=== PATIENT | female | born 1965 ===

== ENCOUNTER → 2022-11-22 15:05 | Outpatient (BNVA) | payer OTHER, SELFPAY | PROVIDERS: PCP Physician Assistant; Visit Provider Hospitalist | DX: D3A.00 Benign carcinoid tumor of unspecified site (principal); J40 Bronchitis, not specified as acute or chronic; R91.8 Other nonspecific abnormal finding of lung field; R40.0 Somnolence | CPT/HCPCS: 99202 ==

== ENCOUNTER 2022-12-06 09:55 | Outpatient (REF) | payer OTHER, SELFPAY ==
--- NOTE | ~2022-12-06 | CT_ITS ---
EXAMINATION: CT CHEST WITHOUT CONTRAST CLINICAL INFORMATION: Pulmonary nodules. COMPARISON: CT chest 01/06/2018. TECHNIQUE: Multidetector volumetric CT imaging of the chest was done. Axial MIP volume rendering provided. Sagittal and coronal reformatted images were obtained. This CT examination was performed using dose optimization techniques as appropriate, variously including the following: *Automated exposure control *Adjustment of mA and/or kV according to patient size (this includes techniques or standardized protocols for targeted exams where dose is matched to indication/reason for exam; i.e. extremities or head) *Use of iterative reconstruction technique DLP: 122 mGy-cm FINDINGS: LUNGS: Right upper lobectomy. Approximate 2.6 x 2.3 cm mass at the hilum with narrowing of the right middle lobe bronchus. Evaluation is limited without intravenous contrast. Stable 4 mm groundglass nodule left upper lobe series 7 image 122. Stable 4 mm nodule right lower lobe series 7 image 312. Stable 3 mm nodule right lower lobe series 7 image 251 stable 2 mm nodule left upper lobe series 7 image 250. Stable 2 mm nodule left upper lobe series 7 image 233. New 4 mm nodule right lower lobe series 7 image 361. MEDIASTINUM: No bulky adenopathy. Evaluation limited without intravenous contrast. CORONARY ARTERY CALCIFICATION: None visualized on this study. PLEURA: There is no pleural effusion. No pleural mass or thickening. AXILLA: No lymphadenopathy. 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 OSSEOUS STRUCTURES: Unremarkable. CT/CT chest wo IV con IMPRESSION: Right upper lobectomy. Approximately 2.6 x 2.3 cm mass at the hilum with narrowing of the right middle lobe bronchus suspicious for recurrence. Evaluation limited without intravenous contrast. Recommend chest CT with intravenous contrast. Bronchoscopy can also be considered. Multiple small pulmonary nodules as above. The majority are stable. There is a new 4 mm nodule right lower lobe which is nonspecific. Fleischner guidelines were followed.
== END 2022-12-06 09:56 | disposition home or self-care (01) ==
LOC: HO.CT 09:55
PROVIDERS: PCP Physician Assistant; Visit Provider Hospitalist
DX: R91.8 Other nonspecific abnormal finding of lung field (principal)
CPT/HCPCS: 71250

== ENCOUNTER 2022-12-13 10:51 | Outpatient (REF) | payer OTHER, SELFPAY ==
--- NOTE | 2022-12-13 15:13 | PFT_ITS ---
FLOWS: 1. FEV1 64% of predicted at 1.72 L. 2. FVC 66% of predicted at 3.21 L. 3. FEV1 to FVC ratio 0.78. 4. No bronchodilator response. LUNG VOLUMES: 1. Total lung capacity 71% of predicted at 3.63 L. 2. Residual volume 84% of predicted at 1.59 L. 3. Slow vital capacity 64% of predicted at 2.04 L. 4. Expiratory reserve volume 27% of predicted at 0.6 L. 5. Diffusion capacity is mildly decreased, diffusion capacity corrects to normal after adjustment for alveolar ventilation. IMPRESSION: Moderate restrictive ventilatory defect with no bronchodilator response. Avtar Monge MD AP/MODL / [id number]
== END 2022-12-13 10:52 | disposition home or self-care (01) ==
LOC: HO.RESP 10:51
PROVIDERS: PCP Physician Assistant; Visit Provider Hospitalist
DX: R91.8 Other nonspecific abnormal finding of lung field (principal); J45.40 Moderate persistent asthma, uncomplicated; D3A.00 Benign carcinoid tumor of unspecified site
CPT/HCPCS: 94060; 94727; 94729; 99212

== ENCOUNTER 2023-01-03 10:50 | Outpatient (REF) | payer OTHER, SELFPAY ==
[2023-01-05 10:19] LABS: HPV mRNA E6/E7 rflx Not Detected (Not Detected)
== END 2023-01-03 10:51 | disposition home or self-care (01) ==
LOC: HO.LNP 10:50
PROVIDERS: PCP Physician Assistant; Visit Provider Obstetrics & Gynecology
DX: Z01.419 Encounter for gynecological examination (general) (routine) without abnormal findings (principal); Z11.51 Encounter for screening for human papillomavirus (HPV)
CPT/HCPCS: 87624; 88142

== ENCOUNTER 2023-01-17 11:21 | Outpatient (REF) | payer OTHER, SELFPAY ==
--- NOTE | ~2023-01-17 | US_ITS ---
EXAMINATION: US PELVIS CLINICAL INFORMATION: Disorders of the ovaries/fallopian tube. COMPARISON: Pelvic ultrasound 09/18/2018. TECHNIQUE: Ultrasound of the pelvis is performed using both transabdominal and transvaginal transducers along with Doppler. Transvaginal imaging is performed due to inadequate visualization transabdominally. FINDINGS: The uterus is anteverted and measures 5.7 x 2.9 x 3.5 cm. No uterine mass. The endometrium measures 0.4 cm in thickness with a small amount of fluid. Redemonstration of a homogeneously hypoechoic solid appearing left adnexal mass measuring 2.5 x 2 x 2.7 cm, increased in size from 1.9 x 1.4 x 2.3 cm on pelvic ultrasound from 09/18/2018. The adjacent left ovary is partially seen measuring approximately 2.3 x 1.4 x 1.9 cm, 3.2 mL. Normal appearance of the right ovary measuring 2.6 x 1.3 x 1.9 cm, 3.4 mL. US/US pelvic and transvaginal IMPRESSION: 1. Redemonstration of a left adnexal mass which is increased in size from 09/18/2018. Recommend further evaluation with an MR of the pelvis with and without intravenous contrast. 2. Normal appearance of the right ovary. 3. Small amount of fluid in the endometrial canal, nonspecific in a postmenopausal patient, recommend gynecologic consultation.
== END 2023-01-17 11:22 | disposition home or self-care (01) ==
LOC: HO.US 11:21
PROVIDERS: Visit Provider Obstetrics & Gynecology
DX: N83.8 Other noninflammatory disorders of ovary, fallopian tube and broad ligament (principal)
CPT/HCPCS: 76830; 76856

== ENCOUNTER → 2023-01-30 14:49 | Outpatient (BNVA) | payer MEDICAID, SELFPAY | PROVIDERS: PCP Physician Assistant; Visit Provider Surgery | DX: Z91.89 Other specified personal risk factors, not elsewhere classified (principal); Z80.3 Family history of malignant neoplasm of breast | CPT/HCPCS: 99212 ==

== ENCOUNTER 2023-02-14 08:22 | Outpatient (REF) | payer MEDICAID, SELFPAY ==
--- NOTE | ~2023-02-14 | MM_ITS ---
EXAMINATION: MM SCREENING DIGITAL BREAST TOMOSYNTHESIS, BILATERAL CLINICAL INFORMATION: Screening. Asymptomatic. The lifetime risk of breast cancer based on the Tyrer-Cuzick Model is 10.4%. COMPARISON: Mammography: 01/21/2018 and studies dating back to 09/21/2013. Breast MRI of 05/04/2019. TECHNIQUE: Digital breast tomosynthesis is performed in both the craniocaudal and mediolateral oblique views along with computer-aided detection (CAD). Synthesized 2D images are generated from the tomosynthesis. FINDINGS: The breasts are extremely dense, which lowers the sensitivity of mammography (ACR BI-RADS breast composition Category d). There is a stable parenchymal pattern of the left breast. About the superior aspect of the right breast on mediolateral oblique projection there is a circumscribed approximately 7 mm density lying 6 cm from the nipple for which further evaluation with spot compression view and possible ultrasound is recommended. MM/MM tomosynthesis screening BI IMPRESSION: Right breast density for further evaluation. ASSESSMENT: BI-RADS 0: Incomplete - Need additional imaging evaluation. RECOMMENDATION: 1. Additional views of the right breast 2. Targeted ultrasound if warranted after review of the additional views. 3. Radiology department staff will contact the patient for additional imaging. This patient's information was entered into a reminder system with a target due date for their next mammogram.
[2023-02-14 12:38] LABS: Carcinoembryonic Antigen < 1.73 ng/mL
[2023-02-16 08:34] LABS: CA-125 21 U/mL (<35)
[2023-02-16 08:53] LABS: Carbohydrate Antigen 19-9 21 U/mL (<34)
== END 2023-02-14 08:23 | disposition home or self-care (01) ==
LOC: HO.MAMMO 08:22
PROVIDERS: PCP Physician Assistant; Visit Provider Obstetrics & Gynecology
DX: Z12.31 Encounter for screening mammogram for malignant neoplasm of breast (principal); N83.299 Other ovarian cyst, unspecified side; N83.8 Other noninflammatory disorders of ovary, fallopian tube and broad ligament; N94.89 Other specified conditions associated with female genital organs and menstrual cycle
CPT/HCPCS: 36415; 77063; 77067; 82378; 86301; 86304; 99212

== ENCOUNTER → 2023-03-04 08:03 | Outpatient (BNVA) | payer MEDICAID, SELFPAY | PROVIDERS: Visit Provider Obstetrics & Gynecology ==

== ENCOUNTER 2023-03-15 09:44 | Outpatient (REF) | payer MEDICAID, SELFPAY ==
--- NOTE | ~2023-03-15 | MM_ITS ---
EXAMINATION: MM DIAGNOSTIC DIGITAL BREAST TOMOSYNTHESIS, RIGHT US BREAST, RIGHT CLINICAL INFORMATION: Density, superior aspect of the right breast. COMPARISON: Mammography: 02/14/2023 and studies dating back to 12/31/2014 TECHNIQUE: Digital breast tomosynthesis is performed. 2D images are generated from the tomosynthesis. The following views are obtained: Spot compression right mediolateral oblique projection. Targeted right breast ultrasound. FINDINGS: The breasts are extremely dense, which lowers the sensitivity of mammography (ACR BI-RADS breast composition Category d). There is persistence of a well-circumscribed 9 x 7 mm density. Targeted ultrasound evaluation about the superior aspect of the right breast demonstrates a well-circumscribed slightly lobular cyst without soft tissue component or internal vascular flow and with smooth back wall and increased through-sound transmission. This is at the 11 o'clock position and measures approximately 9 x 7 x 10 mm in size. Results are discussed with the patient at time of visit. MM/MM tomosynthesis added views R IMPRESSION: Right breast circumscribed density corresponds to a cyst. No follow up required. ASSESSMENT: BI-RADS 2: Benign RECOMMENDATION: Routine annual mammography screening. This patient's information was entered into a reminder system with a target due date for their next mammogram.
== END 2023-03-15 09:45 | disposition home or self-care (01) ==
LOC: HO.MAMMO 09:44
PROVIDERS: Visit Provider Obstetrics & Gynecology
DX: R92.2 Inconclusive mammogram (principal)
CPT/HCPCS: 76642; 77061; 77065

== ENCOUNTER → 2023-03-26 09:43 | Outpatient (BNVA) | payer MEDICAID, SELFPAY | PROVIDERS: PCP Physician Assistant; Referring Provider Physician Assistant; Visit Provider Surgery | DX: Z71.2 Person consulting for explanation of examination or test findings (principal); Z91.89 Other specified personal risk factors, not elsewhere classified | CPT/HCPCS: 99212 ==

== ENCOUNTER 2024-04-20 14:05 | Outpatient (AMB) | payer MEDICAID, SELFPAY ==
--- NOTE | 2024-04-20 14:23 | A.OFFVIS_ITS ---
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 No complaints. Last Pap/HPV was negative in 01/10 Last Mammogram was BI-RADS 2 in 03/12, the patient is scheduled for another screening mammogram on 04/21/24 No previous screening Colonoscopy [facility] Medical History Asthma Daytime sleepiness Bronchitis Pulmonary nodules Carcinoid tumor Surgical History H/O bilateral salpingo-oophorectomy History of lung surgery Family History Maternal Aunt Breast CA Mother Lung cancer Family/Other Breast CA Family/Other Breast CA Family/Other Breast CA Family/Other Hepatic cancer Family/Other Breast CA Social History Alcohol intake: never Patient Tobacco Use Status: Never used Tobacco Female Reproductive History Menstrual Age of Menarche: 15 control method: none Date of last pap smear: 01/03/23 History of abnormal pap smear: No History of STI: No Date of Mammogram: 02/14/23 Review of Systems Const All systems reviewed & are unremarkable except as noted in HPI and below Card Reports as per HPI Resp Reports as per HPI GI Reports as per HPI and Reports no additional complaints Reports as per HPI Physical Exam Vital Signs: Last Vital Signs BP 114/62 04/20/24 14:24 BMI result Body Mass Index 29.9 Const General: cooperative, healthy appearing and comfortable Chest Chest palpation & inspection: normal inspection of the chest and normal palpation of entire chest wall Breast/axilla inspection: normal inspection of the breasts and normal inspection of the axillae Breast/axilla palpation: normal palpation of the breasts, normal palpation of the axillae and no axillary lymphadenopathy Resp Effort & Inspection: normal respiratory effort Auscultation: clear to auscultation bilaterally Percussion: percussion normal Cardio Palpation: normal PMI Rate: regular rate Rhythm: regular rhythm Heart sounds: no murmurs and no rubs Peripheral pulses: Peripheral pulses 2+ throughout GI Inspection: Yes normal to inspection Palpation (GI): Soft to palpation, nontender, no guarding, not rigid and No hepatosplenomegaly present Percussion: Yes normal to percussion Auscultation: normal bowel sounds Rectal Exam - Female: deferred General: Yes bladder normal to palpation External Female Exam: No lesion Speculum Exam - Vagina: normal appearance of the vagina, normal palpation, normal vaginal discharge and not erythematous Speculum Exam - Cervix: normal appearance of the cervix and normal palpation Bimanual exam- vagina & uterus: normal bimanual exam, normal palpation, uterine size normal, bladder normal to palpation, consistency normal and normal palpation Bimanual Exam- Adnexa, other: Other (Bilaterally surgically absent) Assessment & Plan Assessment & Plan (1) Well woman exam: Code(s): Z01.419 - Encounter for gynecological examination (general) (routine) without abnormal findings Category: Medical Plan: Co testing not indicated this year. Counseled the patient about the recommended dietary allowance of 1200 mg of Calcium & 600 IU of vitamin D. Mammogram scheduled for tomorrow. The patient was referred to GI for screening colonoscopy . The patient was instructed to perform monthly self-breast exams and schedule annual exam in a year. All questions answered and the patient verbalized understanding. (2) At high risk for breast cancer: Code(s): Z91.89 - Other specified personal risk factors, not elsewhere classified Category: Medical Plan: Discussed with the patient her increased risk for Breast ca. The lifetime risk of breast cancer based on the Tyrer-Cuzick Model is elevated Recommended Intensification of breast Cancer screening with annual MRI breast in addition to annual mammogram and MRI alternating every 6 months. Mammogram done recently , Breast MRI ordered Will refer to Dr Rabago for possible Genetic Ca counseling and possible testing, in addition to counseling regarding Chemoprevention strategies All questions answered, the patient verbalized understanding and agreed with the plan Orders: Orders MM tomosynthesis screening BI Today Z12.31 - Encounter for screening mammogram for malignant neoplasm of breast MR breast BI wo/w con Today Z80.3 - Family history of malignant neoplasm of breast Referrals General Surgery Referral Z91.89 - Other specified personal risk factors, not elsewhere classified Gastroenterology Referral Z12.11 - Encounter for screening for malignant neoplasm of colon Coding Level of Care Code Est Pt Prev Care 40-64y(19804) Diagnoses Well woman exam Z01.419 At high risk for breast cancer Z91.89
[2024-04-20 14:24] VITALS: BP 114/62; BMI 29.9
== END 2024-04-20 15:05 | disposition home or self-care (01) ==
PROVIDERS: PCP Physician Assistant; Visit Provider Obstetrics & Gynecology
DX: Z01.419 Encounter for gynecological examination (general) (routine) without abnormal findings (principal); Z91.89 Other specified personal risk factors, not elsewhere classified
CPT/HCPCS: 99396

== ENCOUNTER → 2024-04-20 14:05 | Outpatient (BNVA) | payer MEDICAID, SELFPAY | PROVIDERS: PCP Physician Assistant; Visit Provider Obstetrics & Gynecology | DX: Z01.419 Encounter for gynecological examination (general) (routine) without abnormal findings (principal); Z91.89 Other specified personal risk factors, not elsewhere classified; Z80.3 Family history of malignant neoplasm of breast | CPT/HCPCS: 99396 ==

== ENCOUNTER → 2024-04-21 12:15 | Outpatient (BNV) | payer MEDICAID, SELFPAY | PROVIDERS: PCP Physician Assistant; Referring Provider Obstetrics & Gynecology; Visit Provider Radiology Diagnostic Radiology | DX: Z12.31 Encounter for screening mammogram for malignant neoplasm of breast (principal) | CPT/HCPCS: 77063; 77067 ==

== ENCOUNTER 2024-04-21 12:22 | Outpatient (REF) | payer MEDICAID, SELFPAY | END 2024-04-21 12:23 | disposition home or self-care (01) | LOC: HO.MAMMO 12:22 | PROVIDERS: PCP Physician Assistant; Referring Provider Obstetrics & Gynecology; Visit Provider Physician Assistant | DX: Z12.31 Encounter for screening mammogram for malignant neoplasm of breast (principal) | CPT/HCPCS: 77063; 77067 ==

== ENCOUNTER 2024-05-14 10:53 | Outpatient (AMB) | payer MEDICAID, SELFPAY ==
--- NOTE | 2024-05-14 10:52 | MHC.OFFVIS ---
Vital Signs 05/14/24 11:04 Height 5 ft 4 in Weight 174 lb BMI 29.9 BP 138/73 Blood Pressure Location Lt brachial Position Sitting Pulse 92 Intake Visit Reasons: personal risk factors Intake Note: Patient is seen in office for at high risk for breast cancer and possible genetic testing. 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 She reports a strong family history of breast cancer including her mother, maternal aunt, maternal cousins x3 and a paternal cousin. She reports a prior history of a breast biopsy which was benign. She denies any current breast symptoms other than breast pain bilaterally. She does not regularly check her breast. Her last mammogram was performed on 01/21/2018 only benign cyst but no suspicious findings (BI-RADS 2). Her Kath model lifetime risk of breast cancer was calculated at 24.1% placing her at high risk category. Breast MRI performed on 05/04/2019 revealed benign findings bilaterally (BI-RADS 2). She subsequently underwent my risk genetic testing on 01/30/2023. This revealed no clinically significant mutations identified. Her breast cancer risk score for remaining life time risk was calculated at 7.9% and her Tyrer-Cuzick remaining lifetime risk was calculated at 7.4%, placing her well below the 20% threshold. Her most recent mammogram performed on 04/21/2024 revealed no mammographic evidence of malignancy (BI-RADS 1). [facility] Medical History Asthma Daytime sleepiness Bronchitis Pulmonary nodules Carcinoid tumor Surgical History H/O bilateral salpingo-oophorectomy History of lung surgery Family History Maternal Aunt Breast CA Mother Lung cancer Family/Other Breast CA Family/Other Breast CA Family/Other Breast CA Family/Other Hepatic cancer Family/Other Breast CA Social History Alcohol intake: never Patient Tobacco Use Status: Never used Tobacco Female Reproductive History Menstrual Age of Menarche: 15 Age of menopause: 47 Total pregnancies: 1 Number of Living Children: 1 Review of Systems Const All systems reviewed & are unremarkable except as noted in HPI and below Physical Exam Vital Signs: Last Vital Signs Pulse 92 05/14/24 11:04 BP 138/73 05/14/24 11:04 BMI result Body Mass Index 29.9 Const General: cooperative and no acute distress Nutritional Appearance: well nourished Orientation/consciousness: patient oriented x3 Limitations: no limitations HEENT Head: Yes normocephalic and Yes atraumatic Ears: hearing grossly normal bilaterally Chest Other: Left breast: No skin change, no nipple retraction, no nipple discharge, no palpable mass, no enlarged lymph nodes, diffuse tenderness especially in the upper outer quadrant and lower quadrants. Right breast: No skin change, no nipple retraction, no nipple discharge, no palpable mass, no enlarged lymph nodes, diffuse tenderness especially in the upper outer quadrant Resp Effort & Inspection: normal respiratory effort, no audible wheezes, no cough and no respiratory distress Cardio Jugular venous distension: no JVD GI Inspection: Yes normal to inspection Skin Other: Warm, dry, no rash Neuro General: patient oriented x3 Extrem General: Yes no clubbing, cyanosis or edema Assessment & Plan Assessment & Plan (1) At high risk for breast cancer: Code(s): Z91.89 - Other specified personal risk factors, not elsewhere classified Category: Medical Plan 58-year-old female patient presenting following her recent genetic testing. 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 [facility] remaining lifetime risk of breast cancer was calculated at 7.4%, well below the 20% threshold placing her at high risk for breast cancer. I recommended she continue her yearly breast examinations and mammograms. Her most recent mammogram of 04/21/2024 revealed no mammographic evidence of malignancy (BI-RADS 1). Examination today revealed no suspicious findings but bilateral breast pain. I recommended follow-up examination in 1 year, sooner p.r.n.. Coding Level of Care Code Est Pt Level 3 (19315) Diagnoses At high risk for breast cancer Z91.89
[2024-05-14 11:04] VITALS: BP 138/73; PULSE 92; BMI 29.9
== END 2024-05-14 11:12 | disposition home or self-care (01) ==
PROVIDERS: PCP Physician Assistant; Referring Provider Obstetrics & Gynecology; Visit Provider Surgery
DX: Z80.3 Family history of malignant neoplasm of breast (principal); Z91.89 Other specified personal risk factors, not elsewhere classified
CPT/HCPCS: 99213

== ENCOUNTER → 2024-05-14 10:53 | Outpatient (BNVA) | payer MEDICAID, SELFPAY | PROVIDERS: PCP Physician Assistant; Referring Provider Obstetrics & Gynecology; Visit Provider Surgery | DX: Z91.89 Other specified personal risk factors, not elsewhere classified (principal); Z80.3 Family history of malignant neoplasm of breast | CPT/HCPCS: 99212 ==

== ENCOUNTER → 2024-09-22 10:39 | Outpatient (BNV) | payer MEDICAID, SELFPAY | PROVIDERS: PCP Physician Assistant; Visit Provider Internal Medicine | DX: N64.4 Mastodynia (principal); Z80.3 Family history of malignant neoplasm of breast | CPT/HCPCS: 77049 ==

== ENCOUNTER 2024-09-22 10:49 | Outpatient (REF) | payer MEDICAID, SELFPAY ==
[2024-09-22] MEDS: gadobutroL 7.5 ML VIAL IVPUSH (11:59)
== END 2024-09-22 10:50 | disposition home or self-care (01) ==
LOC: HO.MRI 10:49
PROVIDERS: PCP Physician Assistant; Visit Provider Obstetrics & Gynecology
DX: Z80.3 Family history of malignant neoplasm of breast (principal)
CPT/HCPCS: 77049; A9585

== ENCOUNTER 2025-01-08 15:11 | Outpatient (AMB) | payer MEDICAID, SELFPAY ==
[2025-01-08 15:16] VITALS: BP 114/62; PULSE 99; O2SAT 98; BMI 29.9
--- NOTE | 2025-01-08 15:16 | MHC.OFFVIS ---
Vital Signs 01/08/25 15:16 Height 5 ft 4 in Weight 174 lb 2.643 oz BMI 29.9 BP 114/62 Blood Pressure Location Lt brachial Position Sitting Pulse 99 Pulse Source Pulse Oximeter Pulse Oximetry (%) 98 Oxygen Delivery Method Room Air Intake Visit Reasons: Pulmonary nodules Allergies No Known Allergies [No Known Allergies*] Allergy (Verified 05/14/24 10:52) HPI Comments Details: The patient is a 59-year-old woman with a known history of carcinoid tumor. apparently back in [address] scan demonstrating a large size mass in her right hemithorax close to the hilum. The patient was then referred to [facility] where she did undergo robotic VAT surgery and the pathology was consistent with carcinoid. All lymph nodes were negative. On CT scan she also had other pulmonary nodules. After surgery the patient did not require any other additional therapies. Been monitoring that area. More recently the patient started developing worsening shortness of breath and cough. She did go to [facility] ED where she was evaluated in the ER. There she had a chest x-ray demonstrating no acute disease. She continues to have some shortness of breath in addition to some left-sided chest discomfort. She is concerned because of the history of pulmonary nodules that she has had on that side. The workup at [facility] although march negative. She does use a rescue inhaler that is helpful. In addition to that previously she was on a maintenance inhaler. At this point she is not interested in starting a maintenance inhaler. Therefore, will go ahead and request pulmonary function studies and also plan to repeat her CT scan to address her pulmonary nodules and history of carcinoid in view of this worsening left-sided chest discomfort. Based on the PFTs with decide if she needs maintenance therapies. 12/13/2022 the patient is here for a pulmonary follow-up visit. She continues to have some wheezing and chest tightness and cough. Primarily on the right side. [id number] severity. She has use her rescue inhaler with partial improvement her symptoms. The patient did have pulmonary function studies today. She does have a mild restriction secondary to her surgery although she does have significant small airway disease likely asthma. She did have a significant response to bronchodilators. Will go ahead and start her on Symbicort and she can continue her rescue inhaler as needed. In the meantime she did undergo a CT scan of the chest. Unfortunately appears that she had a large nodule now measuring 2.6 cm adjacent to her staple line causing near obstruction of the right middle lobe bronchus. Her anatomy has changed since her surgery. It is likely that this masslike density is related to her history of carcinoid since is right on the staple line. Causing significant airway obstruction. I called the thoracic surgeon but could only leave a message. I would try to leave a detailed message regarding the urgency of the matter since the patient's mass is now nearly obstructing the airway. The patient was given a copy of the CD to take with her. I will fax over my note in addition to the CT scan report and her PFTs in order for the patient to be seen urgently at [facility]. 01/08/2025 the patient is here for a pulmonary follow-up visit. Overall she is doing okay she does complaint of chest tightness shortness of breath and wheezing. She does not have any inhalers right now. She did have PFTs back in 2022 demonstrating small airways disease. The patient does benefit from inhaler therapy specially with wheezing on exam. She also has a history of carcinoid the lung status post surgery. She did undergo a repeat CT scan [facility] back in 09/09/2024 which I did review the report. She does have small pulmonary nodules. These may be tumor leads. But did do not appear to be changed from 2022. I did reassure her. Will continue to follow the nodules. At this point there do not appear concerning but they do need follow-up. The patient is interested in pulmonary rehabilitation. Will have her get pulmonary function studies and refer her to [facility] pulmonary rehabilitation at this time. In addition to that will optimize respiratory therapy with inhalers. The patient will return in 4 months. If she has any issues prior to that she will call for an earlier assessment. Otherwise she will have her CT scan sometime in 09/09/2025. [facility] Medical History (Updated 01/10/25 @ 22:54 by Ángel Walls MD) Asthma-COPD overlap syndrome Asthma Daytime sleepiness Bronchitis Pulmonary nodules Carcinoid tumor Surgical History H/O bilateral salpingo-oophorectomy History of lung surgery Family History Maternal Aunt Breast CA Mother Lung cancer Family/Other Breast CA Family/Other Breast CA Family/Other Breast CA Family/Other Hepatic cancer Family/Other Breast CA Social History Alcohol intake: never Patient Tobacco Use Status: Never used Tobacco Female Reproductive History Menstrual Age of Menarche: 15 Review of Systems Const Denies fatigue and Denies fever(s) Eyes Denies change in vision ENT Denies change in voice Card Denies palpitations, Reports dyspnea on exertion, Denies orthopnea and Denies paroxysmal nocturnal dyspnea Resp Reports cough, Reports hemoptysis, Reports dyspnea on exertion and Denies wheezing GI Reports abdominal pain Musc Reports back pain and Reports myalgias Neuro Reports no additional complaints Endo Denies fatigue and Denies palpitations Celestino/Lymph Denies lymphadenopathy Aller/Immun Denies wheezing Physical Exam Vital Signs: Last Vital Signs Pulse 99 01/08/25 15:16 BP 114/62 01/08/25 15:16 Pulse Ox 98 01/08/25 15:16 Oxygen Delivery Method Room Air 01/08/25 15:16 BMI result Body Mass Index 29.9 Const General: comfortable HEENT Head: Yes normocephalic Eyes General: appearance normal, both eyes and all related structures Neck Neck: Yes supple Chest Chest palpation & inspection: normal inspection of the chest Resp Effort & Inspection: normal respiratory effort Auscultation: clear to auscultation bilaterally Cardio Rate: regular rate Rhythm: regular rhythm Heart sounds: S1 normal heart sound present and S2 normal heart sound present GI Auscultation: normal bowel sounds Skin General skin exam: no rashes or lesions noted Extrem General: Yes no clubbing, cyanosis or edema Assessment & Plan Assessment & Plan (1) Asthma: Code(s): J45.909 - Unspecified asthma, uncomplicated Category: Medical Qualifiers: Asthma complication type: uncomplicated Asthma persistence: persistent Asthma severity: moderate Qualified Code(s): J45.40 - Moderate persistent asthma, uncomplicated (2) Carcinoid tumor: Code(s): D3A.00 - Benign carcinoid tumor of unspecified site Category: Medical Qualifiers: Carcinoid tumor malignancy status: unspecified whether malignant Carcinoid tumor location: lung Qualified Code(s): D3A.090 - Benign carcinoid tumor of the bronchus and lung (3) Asthma-COPD overlap syndrome: Code(s): J44.89 - Other specified chronic obstructive pulmonary disease Category: Medical (4) Pulmonary nodules: Code(s): R91.8 - Other nonspecific abnormal finding of lung field Category: Medical Plan start Symbicort FIONA as needed PFTs Benefits from rehab CT chest Zpack F/U 3-4 months Orders: Orders PFT pulmonary function test 01/08/25 J45.40 - Moderate persistent asthma, uncomplicated Pulmonary Rehab 01/08/25 D3A.00 - Benign carcinoid tumor of unspecified site, J44.89 - Other specified chronic obstructive pulmonary disease, J45.40 - Moderate persistent asthma, uncomplicated CT chest wo IV con 09/13/25 D3A.00 - Benign carcinoid tumor of unspecified site, R91.8 - Other nonspecific abnormal finding of lung field Medications: New budesonide-formoterol 160-4.5 mcg/actuation (Symbicort) 2 puffs inhalation BID 10.2 grams 11RF 30 days J44.89 - Other specified chronic obstructive pulmonary disease azithromycin 500 mg PO DAILY 3 tabs 0RF 3 days Coding Level of Care Code Est Pt Level 4 (88629) Complex EM visit Add On G2211 Diagnoses Moderate persistent asthma without complication J45.40 Asthma complication type: uncomplicated Asthma persistence: persistent Asthma severity: moderate Carcinoid tumor of lung, unspecified whether malignant D3A.090 Carcinoid tumor malignancy status: unspecified whether malignant Carcinoid tumor location: lung Asthma-COPD overlap syndrome J44.89 Pulmonary nodules R91.8 Time Spent (min) 20
== END 2025-01-08 15:49 | disposition home or self-care (01) ==
LOC: HO.HPS 15:11
PROVIDERS: PCP Physician Assistant; Visit Provider Hospitalist
DX: J45.40 Moderate persistent asthma, uncomplicated (principal); D3A.090 Benign carcinoid tumor of the bronchus and lung; J44.89 Other specified chronic obstructive pulmonary disease; R91.8 Other nonspecific abnormal finding of lung field
CPT/HCPCS: 99214

== ENCOUNTER → 2025-01-08 15:11 | Outpatient (BNVA) | payer MEDICAID, SELFPAY | PROVIDERS: PCP Physician Assistant; Visit Provider Hospitalist | DX: J45.40 Moderate persistent asthma, uncomplicated (principal); J44.89 Other specified chronic obstructive pulmonary disease; R91.8 Other nonspecific abnormal finding of lung field; D3A.090 Benign carcinoid tumor of the bronchus and lung | CPT/HCPCS: 99212 ==

== ENCOUNTER 2025-02-11 14:47 | Outpatient (REF) | payer MEDICAID, SELFPAY ==
--- NOTE | 2025-02-11 15:35 | PFT_ITS ---
Spirometry [] Lung Volumes [] Diffusion Capacity [] Methacholine Challenge [] Flow Volume Loops [] MVV [] MIP/MEP(Max inspiratory pressure/Max expiratory pressure) [] 6 Minute Walk Test [] ABG [] Interpretation [] MTDD
[2025-02-11 15:38] VITALS: PULSE 112; O2SAT 97
--- OUTSIDE RECORDS SUMMARY | 2025-02-11 17:30 | XMS_ITS | Encounter Summary ---
Author Organization [facility] Address [address] [place] [address] Care Team Providers Care Jockey Agent Name Role Phone Unavailable Primary Care Provider Unavailabl e Reason for Visit * Reason Comments Diarrhea Abdominal Pain Female Dysuria Encounter Details Date Type Department Care Team (Late st Contact Info) Description 02/10/2025 1:08 PM EDT - 02/11/2025 8:21 AM EDT Emergency [facility] Emergency [address] [place] [id number] Discharge Disposition: Home or Self Care Social History Tobacco Use Types Packs/Day Years Used Date Smoking Tobacco: Never Assessed Comments Unknown Sex and Gender Information Value Date Recorded Sex Assigned at Not on file Legal Sex Female 3:57 AM EST Gender Identity Not on file Sexual Orientation Not on file documented as of this encounter Last Filed Vital Signs Vital Sign Reading Time Taken Comments Blood Pressure 119/68 02/11/2025 5:51 AM EDT Pulse 89 02/11/2025 5:51 AM EDT Temperature 36.8 ??C (98.2 ??F) 02/11/2025 5:51 AM ED T Respiratory Rate 16 02/11/2025 5:51 AM EDT Oxygen Saturation 96% 02/11/2025 5:51 AM EDT Inhaled Oxygen Concentration - - Weight 77.1 kg (170 lb) 02/10/2025 1:15 PM EDT Height 162.6 cm (5' 4 ) 02/10/2025 1:15 PM EDT Body Mass Index 29.18 02/10/2025 1:15 PM EDT documented in this encounter Discharge Disposition Disposition Code Departure Means Destination Home or Self Care documented in this encounter Progress Notes * Natalia Branhma RN - 02/10/2025 1:11 PM EDT Pt to ED for c/o lower abd pain, urinary frequency, and diarrhea that started last night. Denies vomiting. documented in this encounter Plan of Treatment Not on file documented as of this encounter Procedures Procedure Name Priority Date/Time Associated Diagnosis Comments URINALYSIS WITH REFLEX MICROSCOPIC AND CULTURE STAT 02/10/2025 3:58 PM EDT HUGHES URINE CULTURE TUBE STAT 02/10/2025 3:58 PM EDT URINALYSIS WITH REFLEX MICROSCOPIC AND CULTURE STAT 02/10/2025 3:58 PM EDT CBC WITH AUTO DIFFERENTIAL STAT 02/10/2025 3:33 PM EDT CBC AND DIFFERENTIAL STAT 02/10/2025 3:33 PM EDT MAGNESIUM STAT 02/10/2025 3:33 PM EDT LIPASE STAT 02/10/2025 3:33 PM EDT COMPREHENSIVE METABOLIC PANEL STAT 02/10/2025 3:33 PM EDT documented in this encounter Results * Hughes urine culture tube (02/10/2025 3:58 PM EDT) Extra Tube Hold for add-ons. 02/10/2025 6:02 PM EDT [facility] Comment:Auto resulted. Urine Urine specimen obtained by clean catch procedure / Unknown Non-blood Collection / Unknown 02/10/2025 3:58 PM EDT 02/10/2025 4:04 PM EDT us Dino Jones MD LAB URINE ORDERABLES Final Res ult [facility] [address] [place] [address], [place] [phone] * Urinalysis with reflex microscopic and culture (02/10/2025 3:58 PM EDT) Specific [place] Urine 1.021 1.003 - 1.030 LAB URINALYSIS - AUTOMATED METHOD 02/10/2025 4:12 PM [facility] pH, Urine 5.5 5.0 - 8.0 pH LAB URINALYSIS - AUTOMATED METHOD 02/10/2025 4:12 PM [facility] Leukocytes, Urine Negative Negative LAB URINALYSIS - AUTOMATED METHOD 02/10/2025 4:12 PM [facility] Nitrite, Urine Negative Negative LAB URINALYSIS - AUTOMATED METHOD 02/10/2025 4:12 PM [facility] Protein, Urine Negative <=Trace mg/dL LAB URINALYSIS - AUTOMATED METHOD 02/10/2025 4:12 PM [facility] Glucose, Urine Negative Negative mg/dL LAB URINALYSIS - AUTOMATED METHOD 02/10/2025 4:12 PM [facility] Ketones, Urine Negative Negative mg/dL LAB URINALYSIS - AUTOMATED METHOD 02/10/2025 4:12 PM [facility] Urobilinogen, Urine 0.2 0.2 - 1.0 mg/dL LAB URINALYSIS - AUTOMATED METHOD 02/10/2025 4:12 PM [facility] Bilirubin, Urine Negative Negative LAB URINALYSIS - AUTOMATED METHOD 02/10/2025 4:12 PM [facility] Blood, Urine Negative Negative LAB URINALYSIS - AUTOMATED METHOD 02/10/2025 4:12 PM [facility] Urine Urine specimen obtained by clean catch procedure / Unknown Non-blood Collection / Unknown 02/10/2025 3:58 PM EDT 02/10/2025 4:04 PM EDT Dino Jones MD LAB URINE ORDERABLES Final Res ult [facility] [address] [place] [address], * (ABNORMAL) CBC auto differential (02/10/2025 3:33 PM EDT) [facility] Signature WBC 4.2(L) 4.8 - 10.8 K/mcL LAB HEMETOLOGY METHOD 02/10/2025 4:11 PM EDT [facility] RBC 4.80 3.80 - 4.80 M/mcL LAB HEMETOLOGY METHOD 02/10/2025 4:11 PM EDT [facility] Hemoglobin 14.4 11.5 - 16.0 g/dL LAB HEMETOLOGY METHOD 02/10/2025 4:11 PM EDT [facility] Hematocrit 44.7 35.0 - 47.0 % LAB HEMETOLOGY METHOD 02/10/2025 4:11 PM EDT [facility] MCV 92.4 79.0 - 98.0 FL LAB HEMETOLOGY METHOD 02/10/2025 4:11 PM EDT [facility] MCH 29.8 27.0 - 32.0 pcg LAB HEMETOLOGY METHOD 02/10/2025 4:11 PM EDT [facility] MCHC 32.2 32.0 - 37.0 g/dL LAB HEMETOLOGY METHOD 02/10/2025 4:11 PM EDT [facility] RDW 12.4 11.0 - 15.0 % LAB HEMETOLOGY METHOD 02/10/2025 4:11 PM EDT [facility] Platelets 150 130 - 400 K/mcL LAB HEMETOLOGY METHOD 02/10/2025 4:11 PM EDT [facility] MPV 13.1(H) 7.0 - 11.0 FL LAB HEMETOLOGY METHOD 02/10/2025 4:11 PM EDT [facility] NRBC 0.0 <1.0 % LAB HEMETOLOGY METHOD 02/10/2025 4:11 PM [facility] NRBC Absolute 0.00 <0.10 K/mcL LAB HEMETOLOGY METHOD 02/10/2025 4:11 PM [facility] Neutrophils Relative 57.6 % LAB HEMETOLOGY METHOD 02/10/2025 4:11 PM [facility] Lymphocytes Relative 33.3 % LAB HEMETOLOGY METHOD 02/10/2025 4:11 PM [facility] Monocytes Relative 8.0 % LAB HEMETOLOGY METHOD 02/10/2025 4:11 PM [facility] Eosinophils Relative 0.7 % LAB HEMETOLOGY METHOD 02/10/2025 4:11 PM [facility] Basophils Relative 0.2 % LAB HEMETOLOGY METHOD 02/10/2025 4:11 PM [facility] Immature Granulocytes Relative 0.2 % LAB HEMETOLOGY METHOD 02/10/2025 4:11 PM [facility] Neutrophils Absolute 2.44 1.50 - 7.00 K/mcL LAB HEMETOLOGY METHOD 02/10/2025 4:11 PM [facility] Lymphocytes Absolute 1.41 1.00 - 5.00 K/mcL LAB HEMETOLOGY METHOD 02/10/2025 4:11 PM [facility] Monocytes Absolute 0.34 0.20 - 1.00 K/mcL LAB HEMETOLOGY METHOD 02/10/2025 4:11 PM [facility] Eosinophils Absolute 0.03 0.00 - 0.50 K/mcL LAB HEMETOLOGY METHOD 02/10/2025 4:11 PM [facility] Basophils Absolute 0.01 0.00 - 0.20 K/mcL LAB HEMETOLOGY METHOD 02/10/2025 4:11 PM [facility] Immature Granulocytes Absolute 0.01 0.00 - 0.03 K/mcL LAB HEMETOLOGY METHOD 02/10/2025 4:11 PM EDT [facility] Blood Venous blood specimen / Unknown Venipuncture / Unknown 02/10/2025 3:33 PM EDT 02/10/2025 3:50 PM EDT us Dino Jones MD LAB BLOOD ORDERABLES Final Res ult Performing Organization Address City/[facility]/ZIP Co de Phone Number [facility] [address] [place] [address], [place] [phone] * Lipase (02/10/2025 3:33 PM EDT) Lipase 26 13 - 75 unit/L LAB CHEMISTRY METHOD 02/10/2025 4:38 PM EDT [facility] Blood Venous blood specimen / Unknown Venipuncture / Unknown 02/10/2025 3:33 PM EDT 02/10/2025 3:49 PM EDT us Dino Jones MD LAB BLOOD ORDERABLES Final Res ult Performing Organization Address [facility] de Phone Number [facility] [address] [place] [address], [place] [phone] * Magnesium (02/10/2025 3:33 PM EDT) Magnesium 2.2 1.9 - 2.6 mg/dL LAB CHEMISTRY METHOD 02/10/2025 4:38 PM EDT [facility] Blood Venous blood specimen / Unknown Venipuncture / Unknown 02/10/2025 3:33 PM EDT 02/10/2025 3:49 PM EDT us Dino Jones MD LAB BLOOD ORDERABLES Final Res ult Performing Organization Address City/[facility]/ZIP Co de Phone Number [facility] [address] [place] [address], * Comprehensive metabolic panel (02/10/2025 3:33 PM EDT) Sodium 135 133 - 145 mmol/L LAB CHEMISTRY METHOD 02/10/2025 4:38 PM EDT [facility] Potassium 3.7 3.5 - 5.5 mmol/L LAB CHEMISTRY METHOD 02/10/2025 4:38 PM [facility] Chloride 105 96 - 110 mmol/L LAB CHEMISTRY METHOD 02/10/2025 4:38 PM [facility] CO2 23 21 - 32 mmol/L LAB CHEMISTRY METHOD 02/10/2025 4:38 PM [facility] Anion Gap 7 3 - 11 LAB CHEMISTRY METHOD 02/10/2025 4:38 PM [facility] Glucose 85 70 - 100 mg/dL LAB CHEMISTRY METHOD 02/10/2025 4:38 PM [facility] BUN 13 5 - 25 mg/dL LAB CHEMISTRY METHOD 02/10/2025 4:38 PM [facility] Creatinine 0.68 0.50 - 1.10 mg/dL LAB CHEMISTRY METHOD 02/10/2025 4:38 PM [facility] eGFR 102 >=60 mL/min/1. 73m2 LAB CHEMISTRY METHOD 02/10/2025 4:38 PM [facility] Comment:Calculation based on the??Chronic Kidney Disease Epidemiology Collaboration (CKD-EPI) equation refit??without adjustment for race. BUN/Creatinine Ratio 19.1 LAB CHEMISTRY METHOD 02/10/2025 4:38 PM [facility] Calcium 9.0 8.5 - 10.5 mg/dL LAB CHEMISTRY METHOD 02/10/2025 4:38 PM [facility] AST (SGOT) 31 10 - 42 unit/L LAB CHEMISTRY METHOD 02/10/2025 4:38 PM EDT [facility] ALT (SGPT) 38 10 - 60 unit/L LAB CHEMISTRY METHOD 02/10/2025 4:38 PM EDT [facility] Alkaline Phosphatase 112 42 - 121 unit/L LAB CHEMISTRY METHOD 02/10/2025 4:38 PM EDT [facility] Total Protein 7.8 6.0 - 8.0 g/dL LAB CHEMISTRY METHOD 02/10/2025 4:38 PM EDT [facility] Albumin 3.7 3.2 - 5.0 g/dL LAB CHEMISTRY METHOD 02/10/2025 4:38 PM EDT [facility] Total Bilirubin 0.5 0.0 - 1.4 mg/dL LAB CHEMISTRY METHOD 02/10/2025 4:38 PM EDT [facility] Blood Venous blood specimen / Unknown Venipuncture / Unknown 02/10/2025 3:33 PM EDT 02/10/2025 3:49 PM EDT us Dino Jones MD LAB BLOOD ORDERABLES Final Res ult [facility] [address] [place] [address], [place] [phone] documented in this encounter Visit Diagnoses Not on filedocumented in this encounter
--- OUTSIDE RECORDS SUMMARY | 2025-02-11 17:30 | XMS_ITS | Encounter Summary ---
Author Organization [facility] Address [address] [place] [address] Care Team Providers Care Kiln Stacker Name Role Phone Joyce Land PA-C Primary Care Provider [phone] Encounter Details Date Type Department Care Team (Late st Contact Info) Description 10/05/2022 Interim Notes [facility] [address] [address] [place] [address] [place], [place] [id number] Social History Tobacco Use Types Packs/Day Years Used Date Smoking Tobacco: Never Smokeless Tobacco: Never Alcohol Use Standard Drinks/Week Comments Not Currently 0 (1 standard drink = 0.6 oz pur e alcohol) Social Connections Answer Date Recorded Social Connections and Isolation 0 11/03/2019 Financial Resource Strain Answer Date R ecorded Financial Resource Strain 0 2019 Stress Answer Date Recorded Stress 0 11/03/2019 Physical Activity Answer Date Recorded Physical Activity 0 11/03/2019 Food Insecurity Answer Date Recorded Food 0 11/03/2019 Transportation Needs Answer Date Record ed Transportation 0 11/03/2019 Housing Stability Answer Date Recorded Housing 0 11/03/2019 Safety and Environment Answer Date Apolinar rded Safety 0 11/03/2019 Utilities Answer Date Recorded Utilities 0 11/03/2019 Employment Answer Date Recorded Employment 0 11/03/2019 Comments No Sex and Gender Information Value Date Recorded Sex Assigned at Female 11/06/2019 1:21 PM PST Legal Sex Female 7:16 AM PDT Gender Identity Female 11/06/2019 1:21 PM PST Sexual Orientation Straight 11/06/2019 1: 21 PM PST COVID-19 Exposure Response Date Recorded In the last 10 days, have yo u been in contact with someone who was confirmed or suspected to have Coronavirus/COVID-19? No / Unsure 10/05/2022 4:27 PM EST documented as of this encounter Plan of Treatment Not on file documented as of this encounter Visit Diagnoses Not on filedocumented in this encounter Additional Health Concerns Assessment Noted Time PHQ-9 Depression Total Score: 9 02/06/20 22 8:56 AM PDT documented as of this encounter Care Teams Kiln Stacker Relationship Specialty Start Date End Date Joyce Land PA-C [address] [place] [address] PCP - General Internal Medicine 02/13/22 documented as of this encounter
--- OUTSIDE RECORDS SUMMARY | 2025-02-11 17:30 | XMS_ITS | Clinical Summary ---
Author Organization [facility] Address [address] [place] [address] Care Team Providers Care Literature Teacher Name Role Phone Joyce Land PA-C Primary Care Provider [phone] Source Comments PLEASE NOTE, if this patient is a minor, it may be UNLAWFUL to discuss sensitive information that is contained in these records (such as FAMILY PLANNING, MENTAL HEALTH or SUBSTANCE ABUSE) with the minor patient's parent or other person without the patient's specific authorization.[facility] Allergies No known active allergies Medications albuterol sulfate 90 mcg/actuation inhalerIndicatio ns:Mild intermittent asthma with status asthmaticus ([facility]) Inhale 2 Puffs into the lungs every 4 (four) hours as needed for shortness of breath or wheezing 1 g 1 2 Active ibuprofen 600 mg tabletIndication s:Costochondriti s Take 1 Tablet by mouth 4 (four) times daily as needed for pain 60 Tablet 2 2 Active melatonin 5 mg tab TOME SHABANA TABLETA TODOS LOS D AL ACOSTARSE CUANDO SEA NECESARIO FOR SLEEP 3 Active methocarbamoL (ROBAXIN) 500 mg tabletIndication s:Muscle spasm Take 1 Tablet by mouth 3 (three) times daily 20 Tablet 3 Active dextromethorphan -guaifenesin (MUCINEX DM) 30-600 mg per 12 hr tabletIndication s:Productive cough,Bronchitis Take 1 Tablet by mouth 2 (two) times daily 20 Tablet 4 Active compr.stocking,k nerasheed,shun,yudyIn dications:Edema of both lower extremities 20-30 compression stockings for daily use. BMI 29.30. Lifetime need it. 1 Each 4 Active diclofenac sodium (VOLTAREN) 1 % gelIndications:C hronic right shoulder pain Apply 2 g topically 2 (two) times daily To right shoulder 150 g 1 4 Active acetaminophen (TYLENOL) 500 mg tabletIndication s:Chronic right shoulder pain Take 1 Tablet by mouth every 6 (six) hours as needed for pain 60 Tablet 3 4 Active predniSONE (DELTASONE) 20 mg tabletIndication s:Chronic right shoulder pain Take 1 Tablet by mouth once daily 5 Tablet 5 Active Active Problems Problem Noted Date Diagnosed Date Financial difficulties 11/27/2024 Lack of access to transportation 11/27/2024 Low serum vitamin D 10/04/2021 Gastroesophageal reflux disease without esophagi tis 11/22/2019 Chronic LLQ pain 11/22/2019 Anxiety 11/16/2019 Asthma ([facility]) 11/16/2019 Depression 11/16/2019 Fibrocystic breast changes 11/16/2019 Endometrial polyp 11/16/2019 PORTER (stress urinary incontinence, female) 2019 History of lobectomy of lung, right upper lobe 0 03/21/2018 Overview (11/22/2019): [facility] [place] History of lung cancer, Rt Overview (11/22/2019): estiven [facility] Chronic right shoulder pain Overview (06/15/2024): 06/10/2024 - Right shoulder x-ray- Impression: normal Ovarian mass, right Overview (11/22/2019): [facility] Resolved Problems Problem Noted Date Diagnosed Date Resolved Date 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 10/05/2022 Overview (11/16/2019): s/p right upper lobectomy at [facility] Encounters Date Type Department Care Team Description 11/27/2024 9:20 AM EST Office Visit [address] [phone] Joyce Land PA-C Chronic right shoulder pain (Primary Dx); History of lobectomy of lung, right upper lobe; Pulmonary nodule from Last 3 Months Family History Medical History Relation Name Comments Alcohol/Drug Abuse Father Cancer Mother lung Breast cancer Sister Relation Name Status Comments Father Mother Sister Alive Social History Tobacco Use Types Packs/Day Years Used Date Smoking Tobacco: Never Passive Smoke Exposure: Never Smokeless Tobacco: Never Tobacco Cessation:Counseling Given: Yes Alcohol Use Standard Drinks/Week Comments Not Currently 0 (1 standard drink = 0.6 oz pur e alcohol) Social Connections Answer Date Recorded Connectedness 1 11/27/2024 Financial Resource Strain Answer Date R ecorded Financial Resource Strain 2 2024 Stress Answer Date Recorded Stress 2 11/27/2024 Physical Activity Answer Date Recorded Physical Activity 0 11/03/2019 Food Insecurity Answer Date Recorded Food 1 11/27/2024 Transportation Needs Answer Date Record ed Transportation 1 11/27/2024 Housing Stability Answer Date Recorded Housing 1 11/27/2024 Safety and Environment Answer Date Apolinar rded Safety 0 11/03/2019 Utilities Answer Date Recorded Utilities 1 11/27/2024 Employment Answer Date Recorded Stress 0 07/08/2024 Comments No Sex and Gender Information Value Date Recorded Sex Assigned at Female 11/06/2019 1:21 PM PST Legal Sex Female 7:16 AM PDT Gender Identity Female 11/06/2019 1:21 PM PST Sexual Orientation Straight 11/06/2019 1: 21 PM PST Last Filed Vital Signs Vital Sign Reading Time Taken Comments Blood Pressure 102/80 11/27/2024 9:50 AM EST Pulse 97 11/27/2024 9:50 AM EST Temperature 37.2 ??C (98.9 ??F) 11/27/2024 9:50 AM ES T Respiratory Rate 16 11/27/2024 9:50 AM EST Oxygen Saturation 98% 11/27/2024 9:50 AM EST Inhaled Oxygen Concentration - - Weight 77.5 kg (170 lb 12.8 oz) 11/27/2024 9:50 AM EST Height 162.6 cm (5' 4 ) 03/20/2023 3:20 PM EDT Body Mass Index 29.32 03/20/2023 3:20 PM EDT Plan of Treatment Health Maintenance Due Date Last Done Comments Anxiety Screening 1967 HPV Screening 1967 Pap + HPV 1967 Imm-DTaP/Tdap/Td (1 - Tdap) 1986 Imm-Hepatitis B (1 of 3 - 19 + 3-dose series) 1986 Imm-Pneumococcal (1 of 2 - PCV) 1986 Cervical Cancer Screening [address] Colonography 2012 Colonoscopy 2012 Colorectal Cancer Screening 2012 FIT/gFOBT 2012 Fecal DNA 2012 Flexible Sigmoidoscopy 2012 Imm-Zoster, Recombinant (1 of 2) 2017 Annual Preventive Care Visit 09/22/2022 09/22/2021 [id number] ( season) 2024 Imm-Influenza (#1) 2024 Dental BW 09/29/2024 09/27/2023 Dental Examination 09/29/2024 09/27/2023 Dental Perio Charting 09/29/2024 09/27/2023 Dental Prophy 09/29/2024 09/27/2023 Depression Monitoring 02/24/2025 11/27/2024 , 06/08/2024, 03/20/2023, Additional history exists Hypertension Screening (#1) 11/27/2025 Tobacco Screening 11/27/2025 11/27/2024 Breast Cancer Screening (Mammogram) 04/21/2026 04/21/2024, 11/14/2018 Lipid Screening 09/26/2026 09/26/2021, 11/17/2019 Diabetes Screening 02/11/2028 02/10/2025, 1 11/27/2020, 09/26/2021, Additional history exists Dental FMX/Pano 09/29/2028 09/27/2023 HIV Screening Completed 11/17/2019 Hepatitis C Screening Completed 09/26/2021 Alcohol and Drug Screen Completed 11/27/19, 03/20/2023, 02/05/2022, Additional history exists Cervical Ablation/Cold-Knife Conization Discontinued Cervical Cryotherapy Discontinued Colposcopy Discontinued Endometrial Biopsy Discontinued Excision/Leep Discontinued HPV Genotyping Discontinued Vaginal Pap Discontinued Vulvoscopy Discontinued Procedures Procedure Name Priority Date/Time Associated Diagnosis Comments REFERRAL SCANNED DOCUMENT 01/27/2025 3:00 AM EDT REFERRAL SCANNED DOCUMENT 01/25/2025 3:00 AM EDT REFERRAL SCANNED DOCUMENT 01/08/2025 3:00 AM EDT REFERRAL SCANNED DOCUMENT 12/30/2024 3:00 AM EDT REFERRAL TO ORTHOPEDICS Routine 12/25/2024 3:00 AM EST Chronic right shoulder pain OTHER ORDERS SCANNED DOCUMENT 12/18/2024 3:00 AM EST HISTORIC MAMMOGRAM 04/21/2024 3: 00 AM EDT COMP PERIODONTAL EVALUATION - NEW/EST PATIENT Routine 09/27/2023 2:20 PM EST Encounter for dental examination PANORAMIC RADIOGRAPHIC IMAGE Routine 09/27/2023 2:20 PM EST Encounter for dental examination BITEWINGS - FOUR RADIOGRAPHIC IMAGES Routine 09/27/2023 2:20 PM EST Encounter for dental examination Full PROPHYLAXIS - ADULT Routine 09/27/2023 2:20 PM EST Encounter for dental examination Full COMP ORAL EVALUATION - NEW/ESTABLISHED PATIENT Routine 09/27/2023 2:20 PM EST Encounter for dental examination HEPATITIS C AB W/RFLX HCV RNA, QT, RT PCR Routine 09/26/2021 10:33 AM EST Routine general medical examination at a health care facility Chronic heel pain, left Rib pain on left side Chronic left-sided low back pain with left-sided sciatica Trigger middle finger of left hand Left-sided chest pain COMPREHENSIVE METABOLIC PANEL Routine 09/26/2021 10:33 AM EST Routine general medical examination at a health care facility Chronic heel pain, left Rib pain on left side Chronic left-sided low back pain with left-sided sciatica Trigger middle finger of left hand LIPID PANEL Routine 09/26/2021 10:33 AM EST Routine general medical examination at a health care facility Chronic heel pain, left Rib pain on left side Chronic left-sided low back pain with left-sided sciatica Trigger middle finger of left hand ANTIBODY HIV-1&HIV-2 SINGLE RESULT Routine 11/17/2019 9:06 AM EST Encounter for routine laboratory testing from Last 3 Months or Most Recently Relevant to Health Maintenance Results * REFERRAL SCANNED DOCUMENT (01/27/2025 3:00 AM EDT) Only the most recent of4 resultswithin the time period is included. 01/27/2025 3:00 AM EDT [employer] PA-C SCAN REFERRAL Final Result * REFERRAL TO ORTHOPEDICS (12/25/2024 3:00 AM EST) 12/25/2024 3:00 AM EST [employer] PA-C REFERRAL Edited Resul t - Final * OTHER ORDERS SCANNED DOCUMENT (12/18/2024 3:00 AM EST) 12/18/2024 3:00 AM EST [employer] PA-C SCAN OTHER ORDERS Final Resu lt * HISTORIC MAMMOGRAM (04/21/2024 3:00 AM EDT) 04/21/2024 3:00 AM EDT Result [facility] [employer] PA-C IMG MAMMO Final Result * HEPATITIS C AB W/RFLX HCV RNA, QT, RT PCR (09/26/2021 10:33 AM EST) HEPATITIS C ANTIBODY NON-REACT STAN NON-REACT STAN [employer] SIGNAL TO CUT-OFF 0.01 <1.00 [facility] Comment: HCV antibody was non-reactive. There is no laboratory evidence of HCV infection. In most cases, no further action is required. However, if recent HCV exposure is suspected, a test for HCV RNA (test code 93803) is suggested. For additional information please refer to http://education.Red e App/faq/TGL61b6 (This link is being provided for informational/ educational purposes only.) Blood Blood / Unknown 09/26/2021 1 0:33 AM EST 09/26/2021 10:33 AM EST Angela Brooks [facility] - BLOOD DRAW Final Result Performing Organization Address City/[facility] [place]/ZIP Co de Phone Number [facility] [address] [address], [facility] [address] [address] * LIPID PANEL (09/26/2021 10:33 AM EST) [facility] CHOLESTEROL, TOTAL 154 <200 mg/dL [facility] HDL CHOLESTEROL 74 > OR = 50 mg/dL [facility] TRIGLYCERIDES 69 <150 mg/dL [facility] LDL-CHOLESTEROL 65 99 mg/dL (calc) [facility] Comment: Reference range: <100 Desirable range <100 mg/dL for primary prevention; ?? <70 mg/dL for patients with CHD or diabetic patients with > or = 2 CHD risk factors. LDL-C is now calculated using the Rusty-Edison calculation, which is a validated novel method providing better accuracy than the Friedewald equation in the estimation of LDL-C. Rusty GOMEZ et al. VISH. 2013;310(19): 7825-4524 (http://education.CloudMade/faq/ICJ204) CHOL/HDLC RATIO 2.1 <5.0 (calc) [facility] NON-HDL CHOLESTEROL 80 <130 mg/dL (calc) [facility] Comment: For patients with diabetes plus 1 major ASCVD risk factor, treating to a non-HDL-C goal of <100 mg/dL (LDL-C of <70 mg/dL) is considered a therapeutic option. Blood Blood / Unknown 09/26/2021 1 0:33 AM EST 09/26/2021 10:33 AM EST Angela Vangleticia [facility] - BLOOD DRAW Final Result Performing Organization Address City/[facility]/ZIP Co de Phone Number [facility] [address] [address], [facility] [address],[place] [address] * COMPREHENSIVE METABOLIC PANEL (09/26/2021 10:33 AM EST) GLUCOSE 81 65 - 99 mg/dL [facility] Comment: ?Fasting reference interval UREA NITROGEN (BUN) 13 7 - 25 mg/dL [facility] CREATININE (blood) 0.73 0.50 - 1.05 mg/dL [facility] Comment: For patients >49 years of age, the reference limit for Creatinine is approximately 13% higher for people identified as -Palauan. GFR ESTIMATED 93 > OR = 60 mL/min/1 .73m2 [facility] EGFR 108 > OR = 60 mL/min/1 .73m2 [facility] BUN/CREATININE RATIO NOT APPLICABLE 6 - 22 [facility] SODIUM 139 135 - 146 mmol/L [facility] POTASSIUM 4.2 3.5 - 5.3 mmol/L [facility] CHLORIDE 105 98 - 110 mmol/L [facility] CARBON DIOXIDE 26 20 - 32 mmol/L [facility] CALCIUM 9.2 8.6 - 10.4 mg/dL [facility] PROTEIN, TOTAL 7.3 6.1 - 8.1 g/dL [facility] ALBUMIN 4.1 3.6 - 5.1 g/dL [facility] GLOBULIN 3.2 1.9 - 3.7 g/dL (calc) [facility] ALBUMIN/GLOBULIN RATIO 1.3 1.0 - 2.5 (calc) [facility] BILIRUBIN, TOTAL 0.6 0.2 - 1.2 mg/dL [facility] ALKALINE PHOSPHATASE 67 37 - 153 U/L [facility] AST 23 10 - 35 U/L [facility] ALT 16 6 - 29 U/L [facility] Blood Blood / Unknown 09/26/2021 1 0:33 AM EST 09/26/2021 10:33 AM EST Angela Brooks [facility] - BLOOD DRAW Edited Result - Final [facility] [address] [address], [facility] [address] [address] * HIV-1 & HIV-2 ANTIBODIES (11/17/2019 9:06 AM EST) [facility] Signature HIV 1 AND 2 ANTIBODY SCREEN NEGATIVE NEGATIVE [facility] Comment: This assay is a 4th generation assay allowing for earlier detection of HIV infection by detecting the presence of the HIV-1 p24 antigen as well as the traditional antibodies to HIV type 1 (including group O) and type 2. ??Use of a 4th generation assay is the current CDC recommendation for HIV screening. 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
--- OUTSIDE RECORDS SUMMARY | 2025-02-11 17:30 | XMS_ITS | Clinical Summary ---
Author Organization [facility] Address [address] [place] [address] Phone Care Team Providers Care Data Governance Analyst Name Role Phone Unavailable Primary Care Provider Unavailabl e Allergies No known active allergies Encounters Date Type Department Care Team Description 02/10/2025 1:08 PM EDT - 02/11/2025 8:21 AM EDT Emergency [facility] Emergency [address] [place] [address] Discharge Disposition: Home or Self Care from Last 3 Months Social History Tobacco Use Types Packs/Day Years Used Date Smoking Tobacco: Never Assessed Comments Unknown Sex and Gender Information Value Date Recorded Sex Assigned at Not on file Legal Sex Female 3:57 AM EST Gender Identity Not on file Sexual Orientation Not on file Obstetrics History Last Filed Vital Signs Vital Sign Reading [...] Mass Index 29.18 02/10/2025 1:15 PM EDT Plan of Treatment Health Maintenance Due Date Last Done Comments COVID-19 Vaccine (#1) 1972 DTaP,Tdap,and Td Vaccines (1 - Tdap) 1986 Hepatitis B Vaccines (1 of 3 - 19+ 3-dose series) 1986 Pneumococcal Vaccine: 50+ Years (1 of 2 - PCV) 1986 Pneumococcal Vaccine: Pediatrics (0 to 5 Years) and At-Risk Patients (6 to 64 Years) (1 of 2 - PCV) 1986 Zoster Vaccines (1 of 2) 1986 Cervical Cancer Screening: P ap Smear 1988 Colorectal Cancer Screening: Colonoscopy 09/23/2022 Social Influencers of Health Screening 09/23/2022 Breast Cancer Screening 11/01/2023 11/01/19, 11/14/2018 Influenza Vaccine (Season Ended) 2025 Depression Screening 11/27/2025 11/27/2024 Cholesterol Screening (Lipid Panel) 09/26/2026 09/26/2021, 09/26/2021, 11/17/2019 HIV Screening Completed 11/17/2019 Hepatitis C Screening Completed 09/26/2021 HIB Vaccines Aged Out No longer eligi ble based on patient's age to complete this topic HPV Vaccines Aged Out No longer eligi ble based on patient's age to complete this topic Hepatitis A Vaccines Aged Out No long er eligible based on patient's age to complete this topic IPV Vaccines Aged Out No longer eligi ble based on patient's age to complete this topic MMR Vaccines Aged Out No longer eligi ble based on patient's age to complete this topic Meningococcal ACWY Vaccine Aged Out N o longer eligible based on patient's age to complete this topic Meningococcal B Vaccine Aged Out No l onger eligible based on patient's age to complete this topic RSV Immunization Patients Under 20 months Aged Out No longer eligible b ased on patient's age to complete this topic Varicella Vaccines Aged Out No longer eligible based on patient's age to complete this topic Procedures Procedure Name Priority Date/Time Associated Diagnosis Comments HUGHES URINE CULTURE TUBE STAT 02/10/2025 3:58 PM EDT URINALYSIS WITH REFLEX MICROSCOPIC AND CULTURE STAT 02/10/2025 3:58 PM EDT URINALYSIS WITH REFLEX MICROSCOPIC AND CULTURE STAT 02/10/2025 3:58 PM EDT CBC WITH AUTO DIFFERENTIAL STAT 02/10/2025 3:33 PM EDT LIPASE STAT 02/10/2025 3:33 PM EDT MAGNESIUM STAT 02/10/2025 3:33 PM EDT COMPREHENSIVE METABOLIC PANEL STAT 02/10/2025 3:33 PM EDT CBC AND DIFFERENTIAL STAT 02/10/2025 3:33 PM EDT NABIL SCREENING DIGITAL Routine 11/01/2021 2:25 PM EST Encounter for screening mammogram for malignant neoplasm of breast from Last 3 Months or Most Recently Relevant to Health Maintenance Results * Urinalysis with reflex microscopic and culture (02/10/2025 3:58 PM EDT) Specific [place] Urine 1.021 1.003 - 1.030 LAB URINALYSIS - AUTOMATED METHOD 02/10/2025 4:[address] [facility] pH, Urine 5.5 5.0 - 8.0 pH LAB URINALYSIS - AUTOMATED METHOD 02/10/2025 4:[address] [facility] Leukocytes, Urine Negative Negative LAB URINALYSIS - AUTOMATED METHOD 02/10/2025 4:[address] [facility] Nitrite, Urine Negative Negative LAB URINALYSIS - AUTOMATED METHOD 02/10/2025 4:[address] [facility] Protein, Urine Negative <=Trace mg/dL LAB URINALYSIS - AUTOMATED METHOD 02/10/2025 4:[address] [facility] Glucose, Urine Negative Negative mg/dL LAB URINALYSIS - AUTOMATED METHOD 02/10/2025 4:[address] [facility] Ketones, Urine Negative Negative mg/dL LAB URINALYSIS - AUTOMATED METHOD 02/10/2025 4:[address] [facility] Urobilinogen, Urine 0.2 0.2 - 1.0 mg/dL LAB URINALYSIS - AUTOMATED METHOD 02/10/2025 4:12 PM EDT [facility] Bilirubin, Urine Negative Negative LAB URINALYSIS - AUTOMATED METHOD 02/10/2025 4:12 PM EDT [facility] Blood, Urine Negative Negative LAB URINALYSIS - AUTOMATED METHOD 02/10/2025 4:12 PM EDT [facility] Urine Urine specimen obtained by clean catch procedure / Unknown Non-blood Collection / Unknown 02/10/2025 3:58 PM EDT 02/10/2025 4:04 PM EDT us Dino Jones MD LAB URINE ORDERABLES Final Res ult Performing Organization Address City/[facility]/ZIP Co de Phone Number [facility] [address] [place] [address], [place] [phone] * Hughes urine culture tube (02/10/2025 3:58 PM EDT) Extra Tube Hold for add-ons. 02/10/2025 6:02 PM EDT [facility] Comment:Auto resulted. Urine Urine specimen obtained by clean catch procedure / Unknown Non-blood Collection / Unknown 02/10/2025 3:58 PM EDT 02/10/2025 4:04 PM EDT us Dino Jones MD LAB URINE ORDERABLES Final Res ult [facility] [address] [place] [address], [place] [phone] * (ABNORMAL) CBC auto differential (02/10/2025 3:33 PM EDT) WBC 4.2(L) 4.8 - 10.8 K/[facility] LAB HEMETOLOGY METHOD 02/10/2025 4:11 PM EDT [facility] RBC 4.80 3.80 - 4.80 M/[facility] LAB HEMETOLOGY METHOD 02/10/2025 4:11 PM EDT [facility] Hemoglobin 14.4 11.5 - 16.0 g/dL LAB HEMETOLOGY METHOD [facility] Hematocrit 44.7 35.0 - 47.0 % LAB HEMETOLOGY METHOD 02/10[facility]2025 [facility] MCV 92.4 79.0 - 98.0 FL LAB HEMETOLOGY METHOD 02/10/2025 4:11 PM EDT [facility] MCH 29.8 27.0 - 32.0 pcg LAB HEMETOLOGY METHOD 02/10/2025 [facility] MCHC 32.2 32.0 - 37.0 g/dL LAB HEMETOLOGY METHOD 02/10/2025 4:[address] [facility] RDW 12.4 11.0 - 15.0 % LAB HEMETOLOGY METHOD 02/10/2025 [facility] Platelets 150 130 - 400 K/mcL LAB HEMETOLOGY METHOD 02/10/2025 4[facility] MPV 13.1(H) 7.0 - 11.0 FL LAB HEMETOLOGY METHOD 02/10/2025 4:[address] [facility] NRBC 0.0 <1.0 % LAB HEMETOLOGY METHOD 02/10/2025 4:[facility] NRBC Absolute 0.00 <0.10 K/mcL LAB HEMETOLOGY METHOD 02/10/2025 4:[facility] Neutrophils Relative 57.6 % LAB HEMETOLOGY METHOD 02/10/2025 4:[facility] Lymphocytes Relative 33.3 % LAB HEMETOLOGY METHOD 02/10/2025 4:[facility] Monocytes Relative 8.0 % LAB HEMETOLOGY METHOD 02/10/2025 4:11 PM EDT [facility] Eosinophils Relative 0.7 % LAB HEMETOLOGY METHOD 02/10/2025 4:11 PM EDT [facility] Basophils Relative 0.2 % LAB HEMETOLOGY METHOD 02/10/2025 4:11 PM EDT [facility] Immature Granulocytes Relative 0.2 % LAB HEMETOLOGY METHOD 02/10/2025 4:11 PM EDT [facility] Neutrophils Absolute 2.44 1.50 - 7.00 K/mcL LAB HEMETOLOGY METHOD 02/10/2025 4:11 PM EDT [facility] Lymphocytes Absolute 1.41 1.00 - 5.00 K/mcL LAB HEMETOLOGY METHOD 02/10/2025 4:11 PM EDT [facility] Monocytes Absolute 0.34 0.20 - 1.00 K/mcL LAB HEMETOLOGY METHOD 02/10/2025 4:11 PM EDT [facility] Eosinophils Absolute 0.03 0.00 - 0.50 K/mcL LAB HEMETOLOGY METHOD 02/10/2025 4:11 PM EDT [facility] Basophils Absolute 0.01 0.00 - 0.20 K/mcL LAB HEMETOLOGY METHOD 02/10/2025 4:11 PM EDT [facility] Immature Granulocytes Absolute 0.01 0.00 - 0.03 K/mcL LAB HEMETOLOGY METHOD 02/10/2025 4:11 PM EDT [facility] Blood Venous blood specimen / Unknown Venipuncture / Unknown 02/10/2025 3:33 PM EDT 02/10/2025 3:50 PM EDT us Dino Jones MD LAB BLOOD ORDERABLES Final Res ult [facility] [address] [place] [address], [place] [phone] * Magnesium (02/10/2025 3:33 PM EDT) [facility] Magnesium 2.2 1.9 - 2.6 mg/dL LAB CHEMISTRY METHOD 02/10/2025 4:38 PM EDT [facility] Blood Venous blood specimen / Unknown Venipuncture / Unknown 02/10/2025 3:33 PM EDT 02/10/2025 3:49 PM EDT us Dino Jones MD LAB BLOOD ORDERABLES Final Res ult Performing Organization Address [facility]/ZIP Co de Phone Number [facility] [address] [place] [address], [place] [phone] * Lipase (02/10/2025 3:33 PM EDT) [facility] Lipase 26 13 - 75 unit/L LAB CHEMISTRY METHOD 02/10/2025 4:38 PM EDT [facility] Blood Venous blood specimen / Unknown Venipuncture / Unknown 02/10/2025 3:33 PM EDT 02/10/2025 3:49 PM EDT us Dino Jones MD LAB BLOOD ORDERABLES Final Res ult [facility] [address] [place] [address], [place] [phone] * Comprehensive metabolic panel (02/10/2025 3:33 PM EDT) [facility] Sodium 135 133 - 145 mmol/L LAB CHEMISTRY METHOD 02/10/2025 4:38 PM EDT [facility] Potassium 3.7 3.5 - 5.5 mmol/L LAB CHEMISTRY METHOD 02/10/2025 4:38 PM EDT [facility] Chloride 105 96 - 110 mmol/L LAB CHEMISTRY METHOD 02/10/2025 4:[address] [facility] CO2 23 21 - 32 mmol/L LAB CHEMISTRY METHOD 02/10/2025 4:[address] [facility] Anion Gap 7 3 - 11 LAB CHEMISTRY METHOD 02/10/2025 4:[address] [facility] Glucose 85 70 - 100 mg/dL LAB CHEMISTRY METHOD 02/10/2025 4:[address] [facility] BUN 13 5 - 25 mg/dL LAB CHEMISTRY METHOD 02/10/2025 4:[address] [facility] Creatinine 0.68 0.50 - 1.10 mg/dL LAB CHEMISTRY METHOD 02/10/2025 4:[address] [facility] eGFR 102 >=60 mL/min/1. 73m2 LAB CHEMISTRY METHOD 02/10/2025 4:[address] [facility] Comment:Calculation based on the??Chronic Kidney Disease Epidemiology Collaboration (CKD-EPI) equation refit??without adjustment for race. BUN/Creatinine Ratio 19.1 LAB CHEMISTRY METHOD 02/10/2025 4:[address] [facility] Calcium 9.0 8.5 - 10.5 mg/dL LAB CHEMISTRY METHOD 02/10/2025 4:[address] [facility] AST (SGOT) 31 10 - 42 unit/L LAB CHEMISTRY METHOD 02/10/2025 4:[address] [facility] ALT (SGPT) 38 10 - 60 unit/L LAB CHEMISTRY METHOD 02/10/2025 4:[address] [facility] Alkaline Phosphatase 112 42 - 121 unit/L LAB CHEMISTRY METHOD 02/10/2025 4:[address] [facility] Total Protein 7.8 6.0 - 8.0 g/dL LAB CHEMISTRY METHOD 02/10/2025 4:[address] [facility] Albumin 3.7 3.2 - 5.0 g/dL LAB CHEMISTRY METHOD 02/10/2025 4:38 PM EDT [facility] Total Bilirubin 0.5 0.0 - 1.4 mg/dL LAB CHEMISTRY METHOD 02/10/2025 4:38 PM EDT [facility] Blood Venous blood specimen / Unknown Venipuncture / Unknown 02/10/2025 3:33 PM EDT 02/10/2025 3:49 PM EDT us Dino Jones MD LAB BLOOD ORDERABLES Final Res ult [facility] [address] [place] [address], * NABIL SCREENING DIGITAL (11/01/2021 2:25 PM EST) Anatomical Region Laterality Modality Mammography 10/31/2021 1:37 PM EST Narrative 11/01/2021 2:25 PM EST [facility] Diagnostic Imaging Department [address] [place] [address] Patient: ??ANGELA TORIBIO ?/Age/Sex: 1965 - 56 - F Unit#: ??[id number] ? Location/Status: ??SPDIMAM/REG CLI ? Mnemonic/Ordering Site: ??DIGSC/SPMAM Ordering Physician: ??MARIMAR PEREIRA DESULFURIZER MACHINE [facility] Screening Digital - 10/31/21 - 1405 EXAM: [facility] Screening Digital EXAM DATE AND TIME: 10/31/2021 2:07 PM HISTORY: ??Screening. Previous bilateral breast biopsies, pathology benign. Family history of breast carcinoma including maternal aunt and maternal cousin. COMPARISON: ??01/21/18, 11/01/16 [place], [place] TECHNIQUE: CC and MLO views of both breasts were obtained using full field digital mammography. Bilateral digital breast tomosynthesis was performed in the MLO projection. Computer aided detection with the [employer] was employed. TISSUE DENSITY: c. The breasts are heterogeneously dense, which may obscure small masses. FINDINGS: No suspicious masses, grouped microcalcifications, or areas of architectural distortion are seen. Biopsy markers are again seen bilaterally. The skin and vascularity are unremarkable. IMPRESSION: Stable mammographic appearance of the breasts. ??No evidence of malignancy is seen. A negative mammogram in the presence of a clinically suspicious palpable abnormality does not preclude the possibility of malignancy or alter the indications for biopsy. BI-RADS: ??Category 1: Negative RECOMMENDATION(S): 1: Routine screening mammogram BILATERAL in 1 year. [address], [address]209 3341F, 7025F Dictating Physician: ??ARABELLA JAUREGUI MD Electronically Signed by: ??ARABELLA JAUREGUI MD Dic Date/Time: ??11/01/21 1425 Sign date/Time: ??11/01/21 1425 Procedure Note Arabella Jauregui MD - 10/10/2022 [facility] Diagnostic Imaging Department [address] [place] [address] [id number] Patient: ANGELA TORIBIO/Age/Sex: 1965 - 56 - F Unit#: [id number] Location/Status: SPDIMAM/REG CLI Mnemonic/Ordering Site: [facility] Ordering Physician: MARIMAR PEREIRA NP [facility] Screening Digital - 10/31/21 - 1405 EXAM: [facility] Screening Digital EXAM DATE AND TIME: 10/31/2021 2:07 PM HISTORY: Screening. Previous bilateral breast biopsies, pathologybenign. Family history of breast carcinoma including maternal aunt and maternalcousin. COMPARISON: 01/21/18, 11/01/16 [place], [place] TECHNIQUE: CC and MLO views of both breasts were obtained using fullfield digital mammography. Bilateral digital breast tomosynthesis was performedin the MLO projection. Computer aided detection with the [employer] employed. TISSUE DENSITY: c. The breasts are heterogeneously dense, which mayobscure small masses. FINDINGS: No suspicious masses, grouped microcalcifications, or areas ofarchitectural distortion are seen. Biopsy markers are again seen bilaterally. The skinand vascularity are unremarkable. IMPRESSION: Stable mammographic appearance of the breasts. No evidence of malignancyis seen. A negative mammogram in the presence of a clinically suspicious palpable abnormality does not preclude the possibility of malignancy or alter the indications for biopsy. BI-RADS: Category 1: Negative RECOMMENDATION(S): 1: Routine screening mammogram BILATERAL in 1 year. 14571, 84389 3341F, 7025F Dictating Physician: ARABELLA JAUREGUI MD Electronically Signed by: ARABELLA JAUREGUI MD Dic Date/Time: 11/01/211424 Sign date/Time: 11/01/211424 Marimar Pereira NP IMG BI PROCEDURES Final Result from Last 3 Months or Most Recently Relevant to Health Maintenance
== END 2025-02-11 14:48 | disposition home or self-care (01) ==
LOC: HO.RESP 14:47
PROVIDERS: PCP Physician Assistant; Visit Provider Hospitalist
DX: J45.40 Moderate persistent asthma, uncomplicated (principal)
CPT/HCPCS: 94010; 94640; 94727; 94729

== ENCOUNTER → 2025-02-11 15:35 | Outpatient (BNV) | payer MEDICAID, SELFPAY | PROVIDERS: PCP Physician Assistant; Visit Provider Internal Medicine Pulmonary Disease | DX: J45.40 Moderate persistent asthma, uncomplicated (principal) | CPT/HCPCS: 94060; 94727; 94729 ==